=== PATIENT | male | born 1980 | race Caucasian/White ===

== ENCOUNTER 2016-08-08 18:48 | Emergency (ER) | payer OTHER ==
--- NOTE | 2016-08-08 19:20 | UC ---
Skin Complaint HPI - HPI Summary HPI Summary: 8inch long by 3 inch wide rash similar in appearances to erythema migranes- unknown Tick exposure - History of Current Complaint Chief Complaint: UCSkin Time Seen by Provider: 08/08/16 19:13 Stated Complaint: RASH WITH BULLSEYE Hx Obtained From: Patient Onset/Duration: Sudden Onset, Lasting Days - 1, Still Present Timing: Constant Onset Severity: Moderate Current Severity: Moderate Location: Discrete - [place] pubic area Character: Redness - with clearing Aggravating: Nothing Alleviating: Nothing Associated Signs & Symptoms: Positive: Negative - Allergy/Home Medications Allergies/Adverse Reactions: Allergies Allergy/AdvReac Type Severity Reaction Status Date / Time No Known Allergies Allergy Verified 08/08/16 18:58 Review of Systems Constitutional: Negative Skin: Rash Eyes: Negative ENT: Negative Respiratory: Negative Cardiovascular: Negative Gastrointestinal: Negative Genitourinary: Negative Motor: Negative Neurovascular: Negative Musculoskeletal: Negative Neurological: Negative Psychological: Negative All Other Systems Reviewed And Are Negative: Yes PMH/Surg Hx/FS Hx/Imm Hx Previously Healthy: Yes - Surgical History Surgical History: None - Family History Known Family History: Positive: None - Social History Occupation: Unemployed Lives: With Family Alcohol Use: None Substance Use Type: None Smoking Status (MU): Never Smoked Tobacco Physical Exam Triage Information Reviewed: Yes Appearance: Well-Appearing, No Pain Distress, Well-Nourished Vital Signs: Initial Vital Signs Temp 99.6 F 08/08/16 18:57 Pulse 91 08/08/16 18:57 Resp 16 08/08/16 18:57 BP 122/80 08/08/16 18:57 Pulse Ox 97 08/08/16 18:57 Vital Signs Reviewed: Yes Eye Exam: Normal Eyes: Positive: Conjunctiva Clear ENT Exam: Normal ENT: Positive: Normal ENT inspection, Hearing grossly normal, Pharynx normal. Negative: Nasal congestion, Nasal drainage, Tonsillar swelling, Tonsillar exudate, Trismus, Muffled/hoarse voice Dental Exam: Normal Neck exam: Normal Neck: Positive: Supple, Nontender, No Lymphadenopathy Respiratory Exam: Normal Respiratory: Positive: Chest non-tender, Lungs clear, Normal breath sounds, No respiratory distress, No accessory muscle use Cardiovascular Exam: Normal Cardiovascular: Positive: RRR, No Murmur, Pulses Normal, Brisk Capillary Refill Musculoskeletal Exam: Normal Musculoskeletal: Positive: Strength Intact, ROM Intact, No Edema Neurological Exam: Normal Psychological Exam: Normal Skin Exam: Other Skin: Positive: Other - bulls eye looking rash on lower abdomen/suprapubic area Course/Dx - Course Course Of Treatment: lab for lyme titer, start Doxycycline, follow with pcp - Differential Diagnoses - Skin Complaint Differential Diagnoses: Cellulitis, Contact Dermatitis, Impetigo, Local Allergic Reaction, Systemic Illness, Tick Born Illness - Diagnoses Provider Diagnoses: Erythema Migranes Discharge - Discharge Plan Condition: Stable Disposition: HOME Prescriptions: DOXYcycline CAP(*) [DOXYcycline 100MG CAP(*)] 100 mg PO BID #[id number] Patient Education Materials: Doxycycline (By mouth), Lyme Disease (ED) Referrals: [facility] [place] [facility] [Outside]
[2016-08-08] MEDS ORDERED: DOXYcycline CAP(*) 100 MG PO ONE (19:24)
== END 2016-08-08 19:54 | disposition home or self-care (01) ==
LOC: UCEAST 18:48
DX: A26.0 Cutaneous erysipeloid (principal)
CPT/HCPCS: 86618; 99202; A9270-GY; G0463